=== PATIENT | male | born 1955 | race Caucasian/White ===

== ENCOUNTER 2017-03-16 05:00 | Inpatient (IN) | payer OTHER ==
[2017-02-22 08:29] VITALS: BMI 33.0
--- NOTE | 2017-02-22 08:59 | PAT Medication Instructions ---
Service Date Feb 22, 2017. Current Home Medication List Aspirin (Aspirin Ec), 81 MG PO HS Atenolol (Tenormin), 50 MG PO QAM Diclofenac (Voltaren), 75 MG PO BID Oxycodone/Acetaminophen 10MG/325MG (Percocet 10MG/325MG), 1 TAB PO Q6H PRN for N Valsartan (Diovan), 160 MG PO QAM [Icy Hot], 1 DOSE TOP PRN Medication Instructions For Your Scheduled Surgery - Check with surgeon for instructions: Diclofenac (Voltaren), 75 MG PO BID - Hold the following medications 24 hours prior to surgery: [Icy Hot], 1 DOSE TOP PRN - Hold the following medications the morning of surgery: Valsartan (Diovan), 160 MG PO QAM - Take the following medications the morning of surgery with a sip of water: Atenolol (Tenormin), 50 MG PO QAM Oxycodone/Acetaminophen 10MG/325MG (Percocet 10MG/325MG), 1 TAB PO Q6H PRN for N (okay to take up to 4 hours prior to surgery if needed) - Take the following medications as scheduled the night before surgery: Aspirin (Aspirin Ec), 81 MG PO HS Oxycodone/Acetaminophen 10MG/325MG (Percocet 10MG/325MG), 1 TAB PO Q6H PRN for N (if needed) If you have any questions please call us at [phone] (Lani Tobin PA-C) or [phone] or [phone]
--- NOTE | 2017-02-22 09:49 | DIAGNOSTIC IMAGING REPORT ---
TWO VIEW CHEST CLINICAL HISTORY: Preoperative examination. FINDINGS: PA and lateral chest radiographs are compared to study dated 08/08/2013. The cardiomediastinal silhouette is unremarkable. There is atherosclerotic calcification of the thoracic aorta. The lungs and pleural spaces are clear. There is no pneumothorax. The bony thorax appears intact. Degenerative change is noted in the thoracic spine. IMPRESSION: No active disease in the chest. Electronically signed by: Sarbjit Graham M.D. 02/22/2017 9:47 AM Dictated Date/Time: 02/22/2017 9:45 AM
[2017-02-22 09:51] LABS: BASO % 0.5 %; BASO ABS # 0.05 K/uL (0-0.2); COMPLETE YES; EOS % 6.7 %; HEMATOCRIT 40.9 % (42-52); IG% 0.2 %; LYMPH % 29.6 %; LYMPH ABS # 2.72 K/uL (1.2-3.4); MEAN CELL VOLUME 87.6 fL (80-100); MEAN CORPUSCULAR HEMOGLOBIN 29.8 pg (25-34); MEAN PLATELET VOLUME 10.1 fL (7.4-10.4); MONO % 6.1 %; NEUT % 56.9 %; PLATELET COUNT 230 K/uL (130-400); RED BLOOD COUNT 4.67 M/uL (4.7-6.1); WHITE BLOOD COUNT 9.19 K/uL (4.8-10.8)
[2017-02-22 09:55] LABS: URINE APPEARANCE CLEAR (CLEAR); URINE BILIRUBIN NEG (NEG); URINE COLOR DK YELLOW; URINE NITRITE NEG (NEG); URINE SPECIFIC GRAVITY 1.026 (1.000-1.030); UROBILINOGEN NEG (NEG)
[2017-02-22 09:59] LABS: INR 1.1 (0.9-1.1); PROTHROMBIN TIME (PATIENT) 11.3 SECONDS (9.0-12.0)
[2017-02-22 10:12] LABS: ESTIMATED AVERAGE GLUCOSE 117 mg/dl; HA1C FLAG Normal (Normal)
[2017-02-22 10:24] LABS: MANUAL MICROSCOPIC REQUIRED? NO; REVIEW REQ? NO
[2017-02-22 10:29] LABS: CALCIUM 9.3 mg/dl (8.5-10.1)
[2017-02-22 10:32] LABS: BUN/CREATININE RATIO 19.8 (10-20); CREATININE 1.2 mg/dl (0.60-1.40); POTASSIUM 3.7 mmol/L (3.5-5.1)
--- NOTE | 2017-03-15 15:50 | HISTORY & PHYSICAL EXAMINATION ---
DATE OF ADMISSION: 03/16/2017 CHIEF COMPLAINT: Right hip pain. HISTORY OF PRESENT ILLNESS: The patient is a 61-year-old gentleman with known osteoarthritis about his bilateral hips. He has pain with prolonged weightbearing and standing activities. He has difficulty with any kneeling, bending, or squatting activities. Due to ongoing pain and disability with activities of daily living, the patient now desires to proceed with right total hip arthroplasty. PAST MEDICAL HISTORY: Coronary artery disease, status post [place] in 2000. PAST SURGICAL HISTORY: Back surgery, hernia surgery, and cholecystectomy. MEDICATIONS: Atenolol 50 mg daily, aspirin 81 mg daily, Diovan 160 mg daily, Percocet 10/325 q. 6 hours p.r.n. pain, and diclofenac sodium 75 mg 2 times daily. ALLERGIES: No known drug allergies. SOCIAL HISTORY: He states smokeless tobacco use. REVIEW OF SYSTEMS: Noncontributory. PHYSICAL EXAMINATION: GENERAL: Well-nourished and well-developed, obese male who appears his stated age. HEENT: Normocephalic and atraumatic. Extraocular movements intact. Oropharynx is pink and moist. NECK: Supple without adenopathy. LUNGS: Clear to auscultation bilaterally. HEART: Regular rate and rhythm. ABDOMEN: Soft, nontender, nondistended, and obese. EXTREMITIES: The upper extremities are within normal limits. The right hip demonstrates decreased range of motion. There is limitation of active and passive internal/external rotation with pain at end range. X-RAYS: X-rays were reviewed. He has severe osteoarthritis about the right hip with near complete loss of the joint space. There is large osteophyte formation about the femoral head and acetabulum. ASSESSMENT: Right hip degenerative joint disease. PLAN: Risks versus benefits were discussed. Consent was obtained. The patient's primary care physician is Dr. Louise Solo from [place]. His service station manager is Dr. Soto from [facility]. We will proceed with right total hip arthroplasty upon preoperative workup and medical clearance.
[~2017-03-16] VITALS: Ht 182.9 cm; Wt 111.3 kg
[2017-03-16] VITALS (9 sets, daily range): BP systolic 102–127; BP diastolic 64–79; PULSE 67–91; TEMP 36.4–36.8; O2SAT 90–96; Ht 182.9 cm; Wt 111.3 kg
[~2017-03-16 05:00] MED LIST: ASPI81TA28 PO; ATEN50TA8 PO; DICL-201 PO; DVN/160 PO; ICY HOT TOP; OXYC-106 PO
[2017-03-16] MEDS ORDERED: DEXAMETHASONE 4 MG TAB PO SCH (06:00)
[2017-03-16] MEDS ORDERED: LACTATED RINGER'S 1000ML 500 ML IV ONE (06:00)
[2017-03-16] MEDS ORDERED: CEFAZOLIN 2000 MG/60 ML D5W 60 ML IV SCH (06:00)
[2017-03-16] MEDS ORDERED: CeleBREX 200 MG CAP PO SCH (06:00)
[2017-03-16] MEDS ORDERED: GABAPENTIN 300 MG CAP PO SCH (06:00)
[2017-03-16] MEDS ORDERED: METOCLOPRAMIDE HCL 10 MG TAB PO SCH (06:00)
[2017-03-16] MEDS ORDERED: ROPIVACAINE 5MG/ML 30 ML 150 MG, BUPIVACAINE/EPINEPHR 0.5% MPF 30 ML, KETOROLAC TROMETH... INFIL SCH ×7 (06:00)
[2017-03-16] MEDS ORDERED: FAMOTIDINE 20 MG TAB PO SCH (06:00)
[2017-03-16] MEDS ORDERED: LACTATED RINGER'S 1000ML 1,000 ML IV SCH ×2 (06:00)
[2017-03-16] MEDS ORDERED: ACETAMINOPHEN 500 MG TAB PO SCH (06:00)
[2017-03-16] MEDS: TRANEXAMIC ACID INJ 1,000 MG in SODIUM CHLORIDE 0.9% 100ML 100 ML IV SCH ×2 (06:01→06:30)
[2017-03-16] MEDS ORDERED: LIDOCAINE HCL 2% 2 ML VIAL (20MG/ML) ONE (06:04)
[2017-03-16] MEDS ORDERED: PROPOFOL IV EMULSION 10 MG/ML 20 ML VIAL IV ONE ×2 (06:04→07:25)
[2017-03-16] MEDS ORDERED: FENTANYL CITRATE INJ 50 MCG/1 ML 2 ML VIAL ONE (06:05)
[2017-03-16] MEDS ORDERED: MIDAZOLAM HCL 1 MG/ML 2ML VIAL ONE (06:05)
[2017-03-16] MEDS ORDERED: ORTHO JOINT ANESTHETIC ONE (06:27)
[2017-03-16] MEDS ORDERED: POVIDONE-IODINE OP SOLN 30 ML BTL ONE (06:27)
[2017-03-16] MEDS ORDERED: BACITRACIN 50000 UNIT VIAL ONE (06:27)
[2017-03-16] MEDS ORDERED: BUPIVACAINE 0.5 % 5 MG/1 ML PF 10ML VIAL ONE (06:31)
[2017-03-16] MEDS ORDERED: EpHEDrine SULFATE INJ 50 MG/ML AMP IV PRN (06:45)
[2017-03-16] MEDS ORDERED: ONDANSETRON INJ 2 MG/ML 2 ML VIAL IV PRN ×2 (06:45→08:45)
[2017-03-16] MEDS ORDERED: ATROPINE SULFATE 0.1 MG/ML 5ML SYR IV PRN (06:45)
[2017-03-16] MEDS ORDERED: FENTANYL CITRATE INJ 50 MCG/1 ML 2 ML VIAL IV PRN (06:45)
[2017-03-16] MEDS ORDERED: ASPIRIN 81 MG ECTAB PO ONE (06:51)
--- NOTE | 2017-03-16 06:56 | History & Physical Bridge Note ---
H&P Re-Evaluation Bridge Note: I have examined the patient, reviewed the History & Physical and in the interval since the performance of the History & Physical I have noted the following changes of clinical significance: No changes noted
[2017-03-16] MEDS ORDERED: ONDANSETRON INJ 2 MG/ML 2 ML VIAL ONE (07:12)
[2017-03-16] MEDS ORDERED: DEXAMETHASONE SOD INJ 4 MG/ML VIAL ONE (07:12)
[2017-03-16] MEDS ORDERED: EpHEDrine SULFATE 50MG/5ML SYR ONE (07:12)
[2017-03-16] MEDS ORDERED: PHENYLEPHRINE 100MCG/ML 5ML SYR ONE (07:52)
--- NOTE | 2017-03-16 07:54 | [facility] Post Operative Brief Note ---
Immediate Operative Summary Operative Date March 16, 2017. Pre-Operative Diagnosis Right Hip Degenerative Joint Disease Post-Operative Diagnosis Right Hip Degenerative Joint Disease Procedure(s) Performed Right Total Hip Arthroplasty Surgeon Dr. Cam Anodiser Surgeon(s) Curtis Lundberg Estimated Blood Loss 150 ML Findings severe OA Specimens A: Right Femoral Head Disposition Recovery Room / PACU
--- NOTE | 2017-03-16 08:11 | OPERATIVE REPORT ---
DATE OF OPERATION: 03/16/2017 PREOPERATIVE DIAGNOSIS: Osteoarthritis right hip. POSTOPERATIVE DIAGNOSIS: Osteoarthritis right hip. PROCEDURE: Right connective total hip arthroplasty. SURGEON: Dr. Cam. TRANSCRIPT EVALUATOR: Curtis Lucas PA-C. ANESTHESIA: Spinal. COMPLICATIONS: None. OPERATION AND FINDINGS: PROCEDURE: Following induction of adequate spinal anesthesia, the patient was placed in left lateral decubitus position and right Miryam-Langenbeck incision was made. Subcutaneous tissue was sharply dissected. Electrocautery used for hemostasis. The fascia was incised throughout the length of the wound and a bauer scissor placed beneath the short external rotators. The pyriformis was tagged with #1 Vicryl. The short external rotators were divided from the posterior aspect of the femur using electrocautery. These were swept posteriorly. A T-capsulotomy incision was made and the hip was dislocated using a combination of flexion, adduction, and internal rotation. Exposure of the femoral neck with old-style Hohmann and a blunt Hohmann was carried out and a femoral rasp was utilized as a guide for making the appropriate level femoral neck cut. This bone fragment was removed and reserved on the back table. Next, attention was turned to the acetabulum where bone hook was used to retract the femur while the offset retractors were placed anterior and posteriorly. A double-angled Hohmann was placed in superior and anterior position exposing the acetabulum nicely. Acetabular labrum as well as posterior capsule elements were removed using a long knife and a long pickup. Fovea centralis was cleared of all soft tissue. Sequential reamings were carried up to a 56 and decision was made to proceed with impaction of a 56 trabecular metal cup. This was impacted and held using a single 35 mm bone screw. The acetabular liner was placed with 15 of elevated posterior wall in the superior and posterior position. Next, attention was turned to the femoral portion of the case where a Bovie and pickup was used to further clear short external rotators from their insertion on the femur. Box osteotome was used to gain access to the femoral canal and the T-handled rasp and a rattail rasp were used to further open and lateral the canal. Sequentially raspings were carried up to a size 5 which gave good fit and fill of the proximal femur. A trial reduction was carried out and size 5 offset femoral neck component was chosen as the size to be used. A -2.5 x 36 mm ceramic femoral head was impacted into position, +0 head was utilized. The trial reduction was stable in all degrees of rotation with no [id number] impingement. The hip was dislocated. The trial components were removed and the final femoral stem, neck, and femoral head combination were assembled on the back table and impacted into position. Hip was relocated. Range of motion checked once again successful and the wound was irrigated. The pyriformis repaired to the greater trochanter using #1 Vicryl [id number] suture. A Hemovac drain was placed and the fascia was closed using #1 Vicryl, subcutaneous tissue was closed using 0 Dexon, and skin was closed with daljit. Sterile dressing of Adaptic, 4 x 4's, ABDs, and foam tape was applied. The patient tolerated the procedure well. Recovery room stable. Due to the complex nature of the procedure, the entire surgery was performed with the operational assistance of Curtis Lucas PA-C. The hardware sales assistant, under direct supervision, was involved in the actual performance of all aspects of the surgical procedure including hemostasis, tissue retraction and incision, instrument management, patient positioning, and wound closure. I attest to the content of the Intraoperative Record and any orders documented therein. Any exceptio ns are noted below.
[2017-03-16] MEDS ORDERED: TAMSULOSIN HCL 0.4 MG CAP PO PRN (08:45)
[2017-03-16] MEDS ORDERED: ZOLPIDEM TARTRATE 5 MG TAB PO PRN (08:45)
[2017-03-16] MEDS ORDERED: ALUMINUM/MAGNESIUM/SIMETH (MAALOX MAX) 30 ML UDC PO PRN (08:45)
[2017-03-16] MEDS ORDERED: MoRPHine SULFATE 2 MG/ML CARP IV PRN (08:45)
[2017-03-16] MEDS ORDERED: MAGNESIUM HYDROXIDE SUSP 30 ML UDC PO PRN (08:45)
[2017-03-16] MEDS ORDERED: METOCLOPRAMIDE HCL INJ 5 MG/ML 2 ML VIAL IV PRN (08:45)
[2017-03-16] MEDS ORDERED: MoRPHine SULFATE 10 MG/ML CARP/VIAL IV PRN (09:15)
[2017-03-16] MEDS ORDERED: MoRPHine SULFATE 4 MG/ML 1 ML CARP\\VIAL IV PRN (09:15)
--- NOTE | 2017-03-16 09:15 | DIAGNOSTIC IMAGING REPORT ---
RIGHT PELVIS/UNILATERAL HIP 1 VIEW CLINICAL HISTORY: Postop study COMPARISON STUDY: No previous studies for comparison. FINDINGS: There are postsurgical changes of a total right hip arthroplasty. There are overlying skin daljit and surgical drains. There is no acute fracture or dislocation. IMPRESSION: Postsurgical changes of a total right hip arthroplasty. Electronically signed by: Jonah Patricia M.D. 03/16/2017 9:13 AM Dictated Date/Time: 03/16/2017 9:13 AM
--- NOTE | 2017-03-16 09:28 | Anesthesiology Progress Note ---
Anesthesia Post Op Note Date & Time March 16, 2017 at 09:29 Vital Signs Pain Intensity: 0 Vital Signs Past 12 Hours Date Time Temp Pulse Resp B/P Pulse Ox O2 Delivery O2 Flow Rate FiO2 03/16/17 09:23 36.5 03/16/17 09:23 102/65 03/16/17 09:22 75 16 92 03/16/17 09:22 76 16 03/16/17 09:17 69 16 94 03/16/17 09:17 68 16 03/16/17 09:16 100/64 03/16/17 09:15 74 19 95 03/16/17 09:15 73 19 03/16/17 09:11 105/63 03/16/17 09:10 79 18 03/16/17 09:10 77 18 95 03/16/17 09:08 103/65 03/16/17 09:06 83/54 03/16/17 09:05 72 12 95 03/16/17 09:05 71 12 03/16/17 09:04 82 13 96 03/16/17 09:04 79 13 03/16/17 09:01 116/74 03/16/17 08:59 75 22 95 03/16/17 08:59 72 22 03/16/17 08:58 69 19 03/16/17 08:58 69 19 95 03/16/17 08:56 107/76 03/16/17 08:53 70 16 95 03/16/17 08:53 72 16 03/16/17 08:51 110/75 03/16/17 08:48 74 16 98 03/16/17 08:48 74 16 03/16/17 08:47 82 23 98 03/16/17 08:47 84 23 17 08:46 98/67 03/16/17 08:42 64 13 18/17 08:42 62 13 100 17 08:41 108/65 17 08:37 69 16 18/17 08:37 69 16 100 18/17 08:36 98/65 18/17 08:34 71 16 18/17 08:34 71 16 100 18/17 08:31 107/62 18/17 08:29 83 23 18/17 08:29 83 23 100 5/18/17 08:26 100/64 03/16/17 08:25 99/65 03/16/17 08:24 78 03/16/17 08:24 78 99 03/16/17 08:24 36.2 71 20 99/65 99 Mask 10 03/16/17 05:31 36.8 67 20 126/79 94 Room Air Notes Mental Status: alert / awake / arousable, participated in evaluation Pt Amnestic to Procedure: Yes Nausea / Vomiting: adequately controlled Pain: adequately controlled Airway Patency, RR, SpO2: stable & adequate BP & HR: stable & adequate Hydration State: stable & adequate Neuraxial Anesthesia: was administered, sensory block is resolving Anesthetic Complications: no major complications apparent
[2017-03-16] MEDS: D5W AND 1/2NSS + 20MEQ KCL 1,000 ML IV SCH ×2 (09:58→20:36)
[2017-03-16] MEDS: KETOROLAC TROMETHAMINE 30 MG/ML VIAL IV. SCH ×3 (10:00→21:41)
[2017-03-16] MEDS: VALSARTAN 80 MG TAB PO SCH (10:20)
[2017-03-16] MEDS: DOCUSATE SODIUM 100 MG CAP PO SCH ×2 (10:20→20:36)
[2017-03-16] MEDS: MULTIVITAMIN TAB PO SCH (10:21)
[2017-03-16] MEDS: PANTOprazole SOD 40 MG TAB PO SCH (10:21)
[2017-03-16] MEDS: FERROUS GLUCONATE 324 MG TAB PO SCH ×2 (12:49→19:20)
[2017-03-16] MEDS: OXYCODONE HCL IR 5 MG TAB (IMMEDIATE RELEASE) PO PRN ×2 (12:51→16:37)
[2017-03-16] MEDS: CEFAZOLIN IV 2,000 MG in DEXTROSE 5% 50ML 50 ML IV SCH ×2 (13:57→21:41)
[2017-03-16] MEDS: ACETAMINOPHEN 500 MG TAB PO SCH ×2 (13:57→21:41)
[2017-03-16] MEDS: PREGABALIN 75 MG CAP PO SCH (20:36)
[2017-03-16] MEDS: ASPIRIN 81 MG ECTAB PO SCH (20:36)
[2017-03-16] MEDS: OXYCODONE HCL 10 MG TABCR (OXYCONTIN) PO SCH (20:36)
[2017-03-17] VITALS (7 sets, daily range): BP systolic 94–124; BP diastolic 61–78; PULSE 55–78; TEMP 36.5–36.8; O2SAT 93–95
[2017-03-17] MEDS: OXYCODONE HCL IR 5 MG TAB (IMMEDIATE RELEASE) PO PRN ×2 (02:34→15:38)
[2017-03-17] MEDS: KETOROLAC TROMETHAMINE 30 MG/ML VIAL IV. SCH (03:49)
[2017-03-17] MEDS: D5W AND 1/2NSS + 20MEQ KCL 1,000 ML IV SCH (05:41)
[2017-03-17] MEDS: ACETAMINOPHEN 500 MG TAB PO SCH ×2 (05:42→14:12)
[2017-03-17 07:13] LABS: BASO % 0.1 %; BASO ABS # 0.01 K/uL (0-0.2); COMPLETE YES; HEMATOCRIT 34.1 % (42-52); IG% 0.3 %; LYMPH % 7.3 %; LYMPH ABS # 1.23 K/uL (1.2-3.4); MEAN CELL VOLUME 87.9 fL (80-100); MEAN CORPUSCULAR HEMOGLOBIN 29.6 pg (25-34); MEAN CORPUSCULAR HGB CONC 33.7 g/dl (32-36); MEAN PLATELET VOLUME 10.7 fL (7.4-10.4); NEUT % 85.3 %; PLATELET COUNT 196 K/uL (130-400); RED BLOOD COUNT 3.88 M/uL (4.7-6.1); WHITE BLOOD COUNT 16.85 K/uL (4.8-10.8)
[2017-03-17] MEDS ORDERED: DEXAMETHASONE INJ 10 MG in SYRINGE 0 ML IV SCH (07:30)
--- NOTE | 2017-03-17 07:42 | Anesthesiology Progress Note ---
Anesthesia Post Op Note Date & Time March 17, 2017 at 07:42 Vital Signs Pain Intensity: 2.0 Vital Signs Past 12 Hours Date Time Temp Pulse Resp B/P Pulse Ox O2 Delivery O2 Flow Rate FiO2 03/17/17 07:04 36.8 74 16 94/61 95 Room Air 03/17/17 03:45 36.7 78 16 113/71 93 Room Air 03/16/17 22:57 36.8 87 16 108/68 92 Room Air 03/16/17 22:45 Room Air Notes Mental Status: alert / awake / arousable, participated in evaluation Pt Amnestic to Procedure: Yes Nausea / Vomiting: adequately controlled Pain: adequately controlled Airway Patency, RR, SpO2: stable & adequate BP & HR: stable & adequate Hydration State: stable & adequate Neuraxial Anesthesia: was administered, sensory block resolved Anesthetic Complications: no major complications apparent
[2017-03-17 07:46] LABS: BUN/CREATININE RATIO 29.9 (10-20); CALCIUM 8.2 mg/dl (8.5-10.1)
--- NOTE | 2017-03-17 07:56 | Orthopedic Progress Note ---
Orthopedic Progress Note Date of Service March 17, 2017. Subjective Post OP Day: 1 Reports: feeling well Objective calves soft nontender, N/V intact, dressing C/D/I (Hemovac in place), toes mobile Date Time Temp Pulse Resp B/P Pulse Ox O2 Delivery O2 Flow Rate FiO2 03/17/17 07:04 36.8 74 16 94/61 95 Room Air 03/17/17 03:45 36.7 78 16 113/71 93 Room Air 03/16/17 22:57 36.8 87 16 108/68 92 Room Air 03/16/17 22:45 Room Air 03/16/17 18:42 36.7 82 17 116/77 92 Room Air 03/16/17 16:30 Room Air 03/16/17 15:31 36.4 85 18 127/69 93 Room Air 03/16/17 12:35 36.6 91 16 108/69 90 Room Air 03/16/17 12:14 95 Room Air 03/16/17 10:34 75 18 119/72 95 Nasal Cannula 2.0 03/16/17 10:05 75 18 105/64 96 Nasal Cannula 2.0 03/16/17 10:05 36.6 75 16 117/72 95 Nasal Cannula 2.0 03/16/17 09:47 93 Nasal Cannula 2.0 03/16/17 09:40 Nasal Cannula 2.0 03/16/17 09:34 36.6 82 16 102/67 93 Nasal Cannula 2.0 03/16/17 09:23 36.5 03/16/17 09:23 102/65 03/16/17 09:22 75 16 92 03/16/17 09:22 76 16 03/16/17 09:17 69 16 94 03/16/17 09:17 68 16 03/16/17 09:16 100/64 03/16/17 09:15 74 19 95 03/16/17 09:15 73 19 03/16/17 09:11 105/63 03/16/17 09:10 79 18 03/16/17 09:10 77 18 95 03/16/17 09:08 103/65 03/16/17 09:06 83/54 03/16/17 09:05 72 12 95 03/16/17 09:05 71 12 03/16/17 09:04 82 13 96 03/16/17 09:04 79 13 03/16/17 09:01 116/74 03/16/17 08:59 75 22 95 03/16/17 08:59 72 22 03/16/17 08:58 69 19 03/16/17 08:58 69 19 95 03/16/17 08:56 107/76 03/16/17 08:53 70 16 95 03/16/17 08:53 72 16 03/16/17 08:51 110/75 03/16/17 08:48 74 16 98 03/16/17 08:48 74 16 03/16/17 08:47 82 23 98 03/16/17 08:47 84 23 03/16/17 08:46 98/67 03/16/17 08:42 64 13 03/16/17 08:42 62 13 100 03/16/17 08:41 108/65 03/16/17 08:37 69 16 03/16/17 08:37 69 16 100 03/16/17 08:36 98/65 03/16/17 08:34 71 16 03/16/17 08:34 71 16 100 03/16/17 08:31 107/62 03/16/17 08:29 83 23 03/16/17 08:29 83 23 100 03/16/17 08:26 100/64 03/16/17 08:25 99/65 03/16/17 08:24 78 03/16/17 08:24 78 99 03/16/17 08:24 36.2 71 20 99/65 99 Mask 10 Laboratory Results 24 Hours: Test 03/17/17 06:23 White Blood Count 16.85 K/uL Red Blood Count 3.88 M/uL Hemoglobin 11.5 g/dL Hematocrit 34.1 % Mean Corpuscular Volume 87.9 fL Mean Corpuscular Hemoglobin 29.6 pg Mean Corpuscular Hemoglobin Concent 33.7 g/dl Platelet Count 196 K/uL Mean Platelet Volume 10.7 fL Neutrophils (%) (Auto) 85.3 % Lymphocytes (%) (Auto) 7.3 % Monocytes (%) (Auto) 7.0 % Eosinophils (%) (Auto) 0.0 % Basophils (%) (Auto) 0.1 % Neutrophils # (Auto) 14.38 K/uL Lymphocytes # (Auto) 1.23 K/uL Monocytes # (Auto) 1.18 K/uL Eosinophils # (Auto) 0.00 K/uL Basophils # (Auto) 0.01 K/uL Assessment & Plan Assessment: 61 yo male stable POD #1 s/p right KIEL Plan: 1. Med management 2. DVT prophylaxis- ASA, TEDs, SCDs 3. PT/OT 4. D/C planning- home w/ HH
[2017-03-17] MEDS: FERROUS GLUCONATE 324 MG TAB PO SCH ×2 (08:37→12:29)
[2017-03-17] MEDS: MULTIVITAMIN TAB PO SCH (08:38)
[2017-03-17] MEDS: ASPIRIN 81 MG ECTAB PO SCH (08:38)
[2017-03-17] MEDS: PANTOprazole SOD 40 MG TAB PO SCH (08:38)
[2017-03-17] MEDS: PREGABALIN 75 MG CAP PO SCH (08:38)
[2017-03-17] MEDS: OXYCODONE HCL 10 MG TABCR (OXYCONTIN) PO SCH (08:38)
[2017-03-17] MEDS: VALSARTAN 80 MG TAB PO SCH (08:38)
[2017-03-17] MEDS: DOCUSATE SODIUM 100 MG CAP PO SCH (08:38)
[2017-03-17] MEDS ORDERED: CeleBREX 200 MG CAP PO SCH (21:00)
[2017-03-22] MEDS ORDERED: OXYSR10 PO (15:43)
[2017-03-22] MEDS ORDERED: ASPEC81 PO (15:43)
--- NOTE | 2017-03-22 15:45 | Discharge Instructions ---
Discharge Instructions Date of Service March 22, 2017. Admission Reason for Admission: Right Hip Osteoarthritis Discharge Discharge Diagnosis / Problem: Right hip arthritis Discharge Goals Goal(s): Decrease discomfort, Improve function Activity Recommendations Activity Limitations: as noted below Weightbearing Status: Right weightbearing (as tolerated) . Instructions / Follow-Up Instructions / Follow-Up ACTIVITY RECOMMENDATIONS: SELF CARE INSTRUCTIONS AFTER TOTAL HIP REPLACEMENT Until the incision and soft tissues around your hip have healed, there is a possibility that the hip prosthesis could dislocate. A. Observe the following precautions to prevent dislocation: 1. Don't bend your hip greater than 90 degrees. 2. Avoid crossing your legs or ankles while standing or lying. 3. Sit with your feet placed 6 inches apart. 4. When sitting, keep your knees below your hips. Sit on a firm surface, avoid deep, soft chairs and couches. Use an elevated toilet seat in the bathroom. 5. Don't bend over at the waist. Use a long handled shoehorn and a sock aid to help you put on your shoes and socks. A railroad car painter can help you bean picker objects that are too high or too low to reach. 6. Keep car riding to a minimum for at least one month after surgery. B. Your balance may be shaky for a while. Use crutches or a walker until directed by your doctor. C. Use hand rails when walking on stairs. D. Wear low heeled shoes with non-slip soles. E. Be sure that your floors are free of things that could trip you - throw rugs , electrical cords, small objects. Avoid wet and waxed floors, especially with crutches and canes. F. Try to walk several times a day with rest periods between. G. Continue with all the exercises taught to you in the hospital. Again, make walking a part of your daily routine. SPECIAL CARE INSTRUCTIONS: VERY IMPORTANT TO READ AND REVIEW A. You may still be at risk for phlebitis and blood clots. 1. Wear surgical stockings (PERNELL hose) for 2 weeks after surgery to improve circulation and reduce swelling. 2. Take Aspirin 81mg twice daily for 4 weeks or as directed by your doctor. This is your blood thinner. 3. High risk patients may be prescribed a stronger blood thinner if necessary. 4. If you are on Coumadin normally, your family doctor/copier repair technician should monitor your blood work. Expect a phone call the day of or the day after bloodwork is drawn to adjust your dosage. B. You must take antibiotics before having dental work, bladder, bowel and other surgery. Your doctor will provide you with a permanent card to carry describing precautions. C. Call [facility] if you have a fever, redness or swelling around the incision, cloudy drainage from incision, or sudden increase in pain in your hip, not relieved by your regular pain medication. D. Please call the office at if you have any concerns or questions about your operation or recovery. * YOU MAY SHOWER, NO TUB BATHS UNTIL CLEARED BY YOUR DOCTOR. * WEAR PERNELL HOSE 20 HOURS PER DAY FOR 2 WEEKS. * YOU SHOULD USE A WALKER OR CRUTCHES FOR 2-4 WEEKS. THIS WILL HELP PREVENT STRAIN ON YOUR HIP MUSCLE AND ALLOW IT TO HEAL PROPERLY. YOU MAY WEAN TO A CANE TOLERATED. * MOST PATIENTS WILL HAVE HOME NURSING FOR THERAPY. IF YOU DECIDE TO DO OUTPATIENT PHYSICAL THERAPY, PLEASE SCHEDULE THIS 3 TIMES PER WEEK. Silverlon- This is a large adhesive bandage that contains silver ions. This helps your incision heal by fighting off bacteria and protecting it from the outside environment. You are permitted to shower with this dressing. This will remain on your incision for 7 days and then should be removed. Some visible blood or drainage through the dressing window is normal. If there is significant drainage or leaking noted before the 7 days notify your doctor's office immediately. Once removed, keep incision clean and dry. If there is any drainage or redness noted, please call your surgeon. FOLLOW UP VISIT: If appointment is not already scheduled: Please call [facility] to make a follow-up appointment for 2 weeks after your surgery at . Current Hospital Diet Patient's current hospital diet: Regular Diet Discharge Diet Recommended Diet: Regular Diet Procedures Procedures Performed: Right Total Hip Arthroplasty:Uncemented Pending Studies Studies pending at discharge: no Laboratory Results Hemoglobin A1c Test 02/22/17 09:08 Range/Units Estimated Average Glucose 117 mg/dl Hemoglobin A1c 5.7 H 4.5-5.6 % Medical Emergencies . Who to Call and When: Medical Emergencies: If at any time you feel your situation is an emergency, please call 911 immediately. . Non-Emergent Contact Non-Emergency issues call your: Surgeon Call Non-Emergent contact if: temperature is above 101.5, your pain is not controlled, wound has increased drainage, wound has increased redness . "Provider Documentation" section prepared by Curtis Lucas PA-C. . VTE Core Measure Inpt VTE Proph given/why not?: Other Anticoagulation (ASA 81mg bid), T.E.D. Stockings, SCD's [place] Drug Monitoring Program Search Results: patient reviewed within database, no issues identified
--- NOTE | 2017-03-22 16:19 | DISCHARGE SUMMARY ---
CHIEF COMPLAINT: Right hip pain. Please see complete history and physical examination. HOSPITAL COURSE: The patient underwent right total hip arthroplasty without complication. He tolerated the procedure well and was discharged to recovery room in stable condition. His postoperative course was relatively uneventful. His postoperative pain was reasonably well controlled with a combination of spinal anesthesia, IV, and oral pain medications. He was started on aspirin for DVT prophylaxis. He also utilized PERNELL stockings and SCDs for additional prophylaxis. His H\T\H was stable and did not require transfusion. His surgical drain was discontinued by postop day 1, his surgical dressing will remain in place for approximately 7 days postoperative. He tolerated postoperative physical therapy reasonably well as he was ambulating and transferring appropriately. He was observing all total hip precautions. He was discharged home on postoperative day 1. He will continue his physical therapy as an outpatient. He will continue his aspirin for DVT prophylaxis and follow up in our office in approximately 10-14 days for his initial postop evaluation.
== END 2017-03-17 18:20 | disposition home or self-care (01) | DRG 470 ==
LOC: ENRESERVDT → ENRESERVTM → C.ACU 05:00 → C.3E 08:38
PROC: 0SR903Z Replacement of Right Hip Joint with Ceramic Synthetic Substitute, Open Approach (ICD-10-PCS; principal; 2017-03-16 07:00)
DX: M16.0 Bilateral primary osteoarthritis of hip (principal); I25.10 Atherosclerotic heart disease of native coronary artery without angina pectoris; I10 Essential (primary) hypertension; E66.9 Obesity, unspecified; Z68.33 Body mass index [BMI] 33.0-33.9, adult; I25.2 Old myocardial infarction; Z72.0 Tobacco use; Z79.1 Long term (current) use of non-steroidal anti-inflammatories (NSAID); Z79.82 Long term (current) use of aspirin; Z79.891 Long term (current) use of opiate analgesic; Z79.899 Other long term (current) drug therapy